=== PATIENT | male | born 1965 | race Asian ===

== ENCOUNTER 2016-10-01 15:59 | Outpatient (CLI) | payer OTHER | END 2016-10-01 16:59 | disposition home or self-care (01) | LOC: RAD 15:59 | DX: M25.552 Pain in left hip (principal); M25.551 Pain in right hip; M79.605 Pain in left leg; M79.604 Pain in right leg ==

== ENCOUNTER 2017-04-30 18:01 | Emergency (ER) | payer OTHER ==
[~2017-04-30] VITALS: Ht 177.8 cm; Wt 134.3 kg
[2017-04-30 19:38] LABS: PLATELET COUNT 231 K/uL (142-355)
[2017-04-30 19:45] LABS: POTASSIUM 3.9 mmol/L (3.6-5.2); SODIUM 139 mmol/L (136-145)
[2017-04-30 21:03] VITALS: BP 140/91; TEMP 98.7
== END 2017-04-30 21:07 | disposition home or self-care (01) ==
LOC: ED 18:01
PROVIDERS: Specialist
DX: E86.9 Volume depletion, unspecified (principal); I50.9 Heart failure, unspecified; R74.8 Abnormal levels of other serum enzymes; I48.91 Unspecified atrial fibrillation
CPT/HCPCS: 36415; 80053; 83735; 83880; 84100; 84484; 85027; 93005; 96374; 99284; J1940

== ENCOUNTER 2017-09-17 13:06 | Emergency (ER) | payer OTHER ==
[~2017-09-17] VITALS: Ht 177.8 cm; Wt 125.2 kg
[2017-09-17 13:14] VITALS: BP 132/66; TEMP 98.6
[2017-09-17] MEDS ORDERED: CYCL10TA35 PO (13:21)
[2017-09-17] MEDS ORDERED: GABA300C2 PO (13:21)
[2017-09-17] MEDS ORDERED: TRAM50TA PO (13:22)
[2017-09-17] MEDS ORDERED: METOPROLOL25 M1 PO (13:23)
[2017-09-17] MEDS ORDERED: OXYCONTIN30 MG PO (13:23)
[2017-09-17] MEDS ORDERED: LOSA50TA PO (13:24)
[2017-09-17] MEDS ORDERED: FURO40TA93 PO (13:25)
[2017-09-17] MEDS ORDERED: KLOR-CON M2020 MEQ PO (13:26)
[2017-09-17] MEDS ORDERED: PACERONE200 MG PO (13:27)
[2017-09-17] MEDS ORDERED: TAMS0.4C PO (13:29)
[2017-09-17] MEDS ORDERED: PREDNISONE5 MG PO (13:29)
== END 2017-09-17 14:22 | disposition home or self-care (01) ==
LOC: ED 13:06
DX: M54.5 Low back pain (principal)
CPT/HCPCS: 81000; 99281

== ENCOUNTER 2018-05-18 13:13 | Outpatient (CLI) | payer OTHER ==
[~2018-05-18 13:13] MED LIST: CYCL10TA35 PO; FURO40TA93 PO; GABA300C2 PO; KLOR-CON M2020 MEQ PO; LOSA50TA PO; METOPROLOL25 M1 PO; OXYCONTIN30 MG PO; PACERONE200 MG PO; PREDNISONE5 MG PO; TAMS0.4C PO; TRAM50TA PO
== END 2018-05-18 19:31 | disposition home or self-care (01) ==
LOC: CT 13:13
DX: M54.9 Dorsalgia, unspecified (principal); M46.86 Other specified inflammatory spondylopathies, lumbar region; M25.552 Pain in left hip

== ENCOUNTER 2019-07-13 22:30 | Emergency (ER) | payer OTHER ==
[~2019-07-13] VITALS: Ht 177.8 cm; Wt 124.7 kg
[2019-07-13 23:52] VITALS: BP 155/82; TEMP 98.1
== END 2019-07-13 23:52 | disposition home or self-care (01) ==
LOC: ED 22:30
DX: M79.604 Pain in right leg (principal); M25.461 Effusion, right knee; Z96.653 Presence of artificial knee joint, bilateral; W01.198A Fall on same level from slipping, tripping and stumbling with subsequent striking against other object, initial encounter; Y92.89 Other specified places as the place of occurrence of the external cause
CPT/HCPCS: 96372; 99283; J1885

== ENCOUNTER 2019-11-27 15:24 | Emergency (ER) | payer OTHER ==
[~2019-11-27] VITALS: Ht 177.8 cm; Wt 126.1 kg
[2019-11-27 15:29] VITALS: TEMP 98.1
[2019-11-27 16:18] LABS: PLATELET COUNT 150 K/uL (142-355)
[2019-11-27 16:24] LABS: POTASSIUM 3.6 mmol/L (3.6-5.2)
[2019-11-27 16:34] LABS: PARTIAL THROMBOPLASTIN TIME 22.8 SECONDS (24.5-33.6)
[2019-11-27 19:00] VITALS: BP 147/81
== END 2019-11-27 19:05 | disposition home or self-care (01) ==
LOC: ED 15:24
PROVIDERS: Student in an Organized Health Care Education/Training Program
DX: R07.89 Other chest pain (principal)
CPT/HCPCS: 36415; 80053; 83690; 83735; 83880; 84484; 85027; 85610; 85730; 93005; 96360; 99284

== ENCOUNTER 2020-02-28 12:50 | Emergency (ER) | payer OTHER ==
[~2020-02-28] VITALS: Ht 177.8 cm; Wt 123.4 kg
[2020-02-28 12:56] VITALS: BP 146/77; TEMP 98.6
== END 2020-02-28 13:37 | disposition home or self-care (01) ==
LOC: ED 12:50
PROC: 0HQKXZZ Repair Right Lower Leg Skin, External Approach (ICD-10-PCS; principal; 2020-02-28)
DX: S81.811A Laceration without foreign body, right lower leg, initial encounter (principal); W26.8XXA Contact with other sharp object(s), not elsewhere classified, initial encounter; Y92.89 Other specified places as the place of occurrence of the external cause
CPT/HCPCS: 99283; J7040

== ENCOUNTER 2021-02-12 15:13 | Emergency (ER) | payer BC, OTHER ==
[~2021-02-12] VITALS: Ht 177.8 cm; Wt 128.8 kg
[2021-02-12 15:14] VITALS: BP 127/57; TEMP 97.8
== END 2021-02-12 16:42 | disposition home or self-care (01) ==
LOC: ED 15:13
PROC: 0HQGXZZ Repair Left Hand Skin, External Approach (ICD-10-PCS; principal; 2021-02-12)
PROC: 2W3KX1Z Immobilization of Left Finger using Splint (ICD-10-PCS; 2021-02-12)
PROC: 2W3HX1Z Immobilization of Left Thumb using Splint (ICD-10-PCS; 2021-02-12)
DX: S61.211A Laceration without foreign body of left index finger without damage to nail, initial encounter (principal); S61.012A Laceration without foreign body of left thumb without damage to nail, initial encounter; W26.0XXA Contact with knife, initial encounter; Y92.098 Other place in other non-institutional residence as the place of occurrence of the external cause
CPT/HCPCS: 99282

== ENCOUNTER 2021-06-03 07:17 | Emergency (ER) | payer OTHER ==
[~2021-06-03] VITALS: Ht 177.8 cm; Wt 128.8 kg
[2021-06-03 07:51] LABS: PLATELET COUNT 168 K/uL (142-355)
[2021-06-03 08:32] LABS: PARTIAL THROMBOPLASTIN TIME 24.5 SECONDS (24.5-33.6)
[2021-06-03 15:00] VITALS: BP 117/65; TEMP 98.9
== END 2021-06-03 15:00 ==
LOC: ED 07:17
PROVIDERS: Emergency Medicine
DX: R10.31 Right lower quadrant pain (principal); Z87.898 Personal history of other specified conditions; Z11.52 Encounter for screening for COVID-19
CPT/HCPCS: 36415; 80053; 80307; 80320; 81000; 82150; 83690; 85027; 85610; 85730; 87635; 93005; 96374; 96375; 96376; 99284; J2175; J2405; U0003

== ENCOUNTER 2021-10-08 14:42 | Emergency (ER) | payer OTHER ==
[~2021-10-08] VITALS: Ht 177.8 cm; Wt 128.8 kg
[2021-10-08 14:50] VITALS: TEMP 98.1
[2021-10-08 15:57] LABS: PLATELET COUNT 175 K/uL (142-355)
[2021-10-08 16:30] LABS: POTASSIUM 3.4 mmol/L (3.6-5.2)
[2021-10-08 17:53] VITALS: BP 138/75
== END 2021-10-08 17:53 | disposition home or self-care (01) ==
LOC: ED 14:42
PROVIDERS: Emergency Medicine
DX: R10.32 Left lower quadrant pain (principal); M51.37 Other intervertebral disc degeneration, lumbosacral region
CPT/HCPCS: 36415; 80053; 81000; 85027; 96360; 99284

== ENCOUNTER 2021-11-07 10:52 | Outpatient (CLI) | payer OTHER | END 2021-11-07 19:58 | disposition home or self-care (01) | LOC: RAD 10:52 | PROVIDERS: ATTEND Nurse Practitioner Family | DX: M06.4 Inflammatory polyarthropathy (principal); M35.3 Polymyalgia rheumatica; M54.2 Cervicalgia; Z79.899 Other long term (current) drug therapy ==

== ENCOUNTER 2022-02-05 12:00 | Outpatient (CLI) | payer OTHER | END 2022-02-05 19:04 | disposition home or self-care (01) | LOC: RAD 12:00 | PROVIDERS: ATTEND Nurse Practitioner Family | DX: M16.0 Bilateral primary osteoarthritis of hip (principal); M25.551 Pain in right hip; M25.552 Pain in left hip; M06.4 Inflammatory polyarthropathy; M35.3 Polymyalgia rheumatica; M54.2 Cervicalgia; Z79.899 Other long term (current) drug therapy ==

== ENCOUNTER 2022-04-10 12:22 | Outpatient (CLI) | payer OTHER | END 2022-04-10 20:53 | disposition home or self-care (01) | LOC: US 12:22 | PROVIDERS: ATTEND Urology | DX: N50.3 Cyst of epididymis (principal); I86.1 Scrotal varices ==

== ENCOUNTER 2022-05-13 13:00 | Outpatient (CLI) | payer OTHER ==
[~2022-05-13] VITALS: Ht 182.9 cm; Wt 126.7 kg
[2022-05-13 14:12] VITALS: BP 109/60; TEMP 98.3
[2022-05-13 14:50] VITALS: BP 118/58; TEMP 98.3
[2022-05-13 15:05] VITALS: BP 108/61; TEMP 98.7
[2022-05-13 15:35] VITALS: BP 126/75; TEMP 98.3
== END 2022-05-13 23:00 | disposition home or self-care (01) ==
LOC: INF 13:00
PROVIDERS: ATTEND Family Medicine
DX: Z23 Encounter for immunization (principal); U07.1 COVID-19
CPT/HCPCS: 96374; Q0222